=== PATIENT | female | born 1980 | race Caucasian/White ===

== ENCOUNTER 2024-10-14 11:46 | Outpatient (CLI) | payer BC, SELFPAY ==
--- OUTSIDE RECORDS SUMMARY | 2024-10-14 11:56 | XMS_ITS | Encounter Summary ---
Author Organization [facility] Healthcare Address [address] [place] [address] Care Team Providers Care Intermission Coordinator Name Role Phone Josh Morin MD Primary Care Provider [phone] Encounter Details Date Type Department Care Team (Late st Contact Info) Description 08/24/2024 Results Follow-Up [facility] [address] [place] [address] Josh Morin MD [address] [facility] [place] [address] Comprehensive metabolic panel, CBC with auto differential, Lipid panel, Additional followed-up results: 6 Social History Tobacco Use Types Packs/Day Years Used Date Smoking Tobacco: Never Cigarettes Smokeless Tobacco: Never [facility] Utilities Answer Date Recorded In the past 12 months has [facility] [employer], gas, oil, or water [employer] threatened to shut off services in your home? No 05/12/2024 Humiliation, Afraid, Rape, and Kick questionnair e Answer Date Recorded Within the last year, have y ou been afraid of your partner or ex-partner? No 05/12/2024 Within the last year, have y ou been humiliated or emotionally abused in other ways by your partner or ex-partner? No Within the last year, have y ou been kicked, hit, slapped, or otherwise physically hurt by your partner or ex-partner? No 05/12/2024 Within the last year, have y ou been raped or forced to have any kind of sexual activity by your partner or ex-partner? No 05/12/2024 Social Connection and Isolat ion Panel [NHANES] Answer Date Recorded In a typical week, how many times do you talk on the phone with family, friends, or neighbors? More than three times a week 05/12/2024 How often do you get togethe r with friends or relatives? More than three times a week 05/12/2024 How often do you attend [facility] or nondenominational services? More than 4 times per year 05/12/2024 Do you belong to any clubs o r organizations such as hoahaoism groups, unions, fraternal or athletic groups, or school groups? No 05/12/2024 How often do you attend meet ings of the clubs or organizations you belong to? Never 05/12/2024 Are you , , di vorced, , never , or living with a partner? 05/12/2024 AUDIT-C Answer Date Recorded Q1: How often do you have a drink containing alc ohol? Monthly or less 05/12/2024 Q2: How many drinks containi ng alcohol do you have on a typical day when you are drinking? 1 or 2 05/12/2024 Q3: How often do you have si x or more drinks on one occasion? Never 05/12/2024 Overall Financial Resource Strain (CARDIA) Answe r Date Recorded How hard is it for you to pa y for the very basics like food, housing, medical care, and heating? Not hard at all 05/12/2024 PHQ-2 Answer Date Recorded PHQ-2 Total Score (If total score is 3 or more points, staff should administer the PHQ-9) 0 05/12/2024 [facility] - Occupational Stress Questionnaire Answer Date Recorded Do you feel stress - tense, restless, nervous, or anxious, or unable to sleep at night because your mind is troubled all the time - these days? To some extent 05/12/2024 Exercise Vital Sign Answer Date Recorde d On average, how many days pe r week do you engage in moderate to strenuous exercise (like a brisk walk)? 7 days 05/12/2024 On average, how many minutes do you engage in exercise at this level? 30 min 05/12/2024 Hunger Vital Sign Answer Date Recorded Within the past 12 months, y ou worried that your food would run out before you got the money to buy more. Never true 05/12/19 25 Within the past 12 months, t he food you bought just didn't last and you didn't have money to get more. Never true 05/12/2024 PRAPARE - Transportation Answer Date Re corded In the past 12 months, has l ack of transportation kept you from medical appointments or from getting medications? No 04/18 In the past 12 months, has l ack of transportation kept you from meetings, work, or from getting things needed for daily living? No 05/12/2024 PHQ-9 Answer Date Recorded PHQ-9 Total Score 0 05/12/2024 Housing Stability Vital Sign Answer Alexander e Recorded In the last 12 months, was t here a time when you were not able to pay the mortgage or rent on time? No 05/12/2024 In the past 12 months, how m any times have you moved where you were living? 0 05/12/2024 At any time in the past 12 m [facility], were you homeless or living in a long term (including now)? No 05/12/2024 Comments No Sex and Gender Information Value Date Recorded Sex Assigned at Not on file Legal Sex Female 1:39 PM [employer] Gender Identity Not on file Sexual Orientation Not on file documented as of this encounter Plan of Treatment Not on file documented as of this encounter Visit Diagnoses Not on filedocumented in this encounter Care Teams Intermission Coordinator Relationship Specialty Start Date End [place] [address] PCP - General Family Medicine 05/03/22 documented as of this encounter
--- OUTSIDE RECORDS SUMMARY | 2024-10-14 11:56 | XMS_ITS | Referral Summary ---
Author Organization [facility] Address [address] [place] [address] Phone Care Team Providers Care Lacing Cutter Name Role Phone Josh Morin MD Primary Care Provider [phone] Encounters Date Type Department Care Team Description 08/24/2024 Results Follow-Up [facility] [address] [place] [phone] Josh Morin MD Comprehensive metabolic panel, CBC with auto differential, Lipid panel, Additional followed-up results: 6 08/23/2024 8:10 AM CDT Lab [facility] [address] [place] [phone] Annual physical exam; Encounter for hepatitis C screening test for low risk patient; Need for hepatitis B screening test 07/29/2024 Results Follow-Up [facility] [address] [place] [phone] Josh Morin MD Screening Mammogram Bilateral [place] 07/29/2024 12:55 PM CDT - 07/29/2024 11:59 PM CDT Hospital Encounter [facility] [address] [place] [address] Screening mammogram, encounter for Discharge Disposition: Discharge to home or self care from Last 3 Months Allergies Active Allergy Reactions Criticality Noted Date Comments Penicillins Rash Medium 05/03/2022 Medications No known medications Active Problems Problem Noted Date Diagnosed Date Uterine prolapse 05/25/2024 Assessment & Plan (05/25/2024 3:53 PM CDT): Patient diagnosed with uterine prolapse,, has urinary symptoms; patient to follow with gynecology for hysterectomy Seasonal allergic rhinitis due to pollen 025 Assessment & Plan (05/25/2024 3:53 PM CDT): Experience congestion, postnasal drip, mild throat irritation Would recommend OTC anti allergy medications Tinnitus of both ears 05/25/2024 Assessment & Plan (05/25/2024 3:54 PM CDT): Stable, generally well controlled, occasional in nature; continue to encourage avoiding damage to inner ears Class 2 obesity due to exces s calories without serious comorbidity with body mass index (BMI) of 35.0 to 35.9 in adult 05/25/2024 Assessment & Plan (05/25/2024 3:54 PM CDT): Patient is counseled to work on weight loss through dietary and activity changes. Patient is encouraged to decrease caloric intake through portion control, choosing lower calorie foods, and targeting 5-6 servings of vegetables and fruit per day. Patient is encouraged to maintain or target a minimum of 30 minutes moderate intensity exercise 5 days per week. Immunizations Immunization Administration Dates Next Due Influenza, Quadrivalent, Spl it, Preservative Free, Intramuscular 05/03/2022,12/21/2019 Influenza, Trivalent, Preser vative Free, Intramuscular 05/12/2024 Influenza, Unspecified 05/07/2023(Deferr ed: Patient Refused),12/24/2022(Deferred: Patient Refused),11/15/2021(Deferred: Patient Refused) Tdap 05/18/2015 Social History Tobacco Use Types Packs/Day Years Used Date Smoking Tobacco: Never Cigarettes Smokeless Tobacco: Never Tobacco Cessation:Counseling Given: Not Answered [facility] [employer] Answer Date Recorded In the past 12 months has e [employer], gas, oil, or water [employer] threatened to shut off services in your [...] week 05/12/2024 How often do you attend chur or mormon services? More than 4 times per year 05/12/2024 Do you belong to any clubs o r organizations such as religious groups, unions, fraternal or athletic groups, or [...] staff should administer the PHQ-9) 0 05/12/2024 [facility] [place] of Occupat ional Health - Occupational Stress [...] any time in the past 12 m [facility], were you homeless or living in a alf (including now)? No 05/12/2024 Comments No Sex and Gender Information Value Date Recorded Sex Assigned at Not on file Legal Sex Female 1:39 PM [employer] Gender Identity Not on file Sexual Orientation Not on file Last Filed Vital Signs Vital Sign Reading Time Taken Comments Blood Pressure 120/84 05/12/2024 4:03 PM [employer] Pulse 74 05/12/2024 4:03 PM [employer] Temperature 36.7 C (98.1 F) 05/12/2024 4:03 PM [employer] Respiratory Rate 16 05/12/2024 4:03 PM [employer] Oxygen Saturation 99% 05/12/2024 4:03 PM [employer] Inhaled Oxygen Concentration - - Weight 97.5 kg (215 lb) 07/29/2024 1:05 PM CDT Height 165.1 cm (5' 5) 07/29/2024 1:05 PM CDT Body Mass Index 35.78 07/29/2024 1:05 PM CDT Plan of Treatment Not on file Procedures Procedure Name Priority Date/Time Associated Diagnosis Comments EGFR Routine 08/23/2024 8:10 AM CDT Annual physical exam DIFFERENTIAL AUTO Routine 08/23/2024 8:1 0 AM CDT Annual physical exam LIPID PANEL Routine 08/23/2024 8:10 AM CDT Annual physical exam CBC WITH AUTO DIFFERENTIAL Routine 08/23/2024 8:10 AM CDT Annual physical exam COMPREHENSIVE METABOLIC PANEL Routine 08/23/2024 8:10 AM CDT Annual physical exam HEPATITIS B SURFACE ANTIGEN Routine 08/23/2024 8:10 AM CDT Need for hepatitis B screening test HEPATITIS B CORE ANTIBODY, TOTAL Routine 08/23/2024 8:10 AM CDT Need for hepatitis B screening test HEPATITIS B SURFACE ANTIBODY (IMMUNE STATUS) Routine 08/23/2024 8:10 AM CDT Need for hepatitis B screening test HEPATITIS C ANTIBODY Routine 08/23/2024 8:10 AM CDT Encounter for hepatitis C screening test for low risk patient SCREENING MAMMOGRAM BILATERAL [place] Schedule Routine, Read Routine (OP Routine) 07/29/2024 1:11 PM CDT Screening mammogram, encounter for from Last 3 Months Results * eGFR (08/23/2024 8:10 AM CDT) eGFR >90 >=60 mL/min/1. 73 m2 Comment: Interpretive Data Reference Interval Normal >/= 90 mL/min/1.73m2 Mildly decreased* 60 - 89 mL/min/1.73m2 Mildly to moderately decreased 45 - 59 mL/min/1.73m2 Moderately to severely decreased 30 - 44 mL/min/1.73m2 Severely decreased 15 - 29 mL/min/1.73m2 Kidney Failure < 15 mL/min/1.73m2 *Relative to young adult level Estimated glomerular filtration rate is determined by the 2020 CKD-EPI equation recommended by the National Kidney Foundation (A Unifying Approach to GFR Estimation: Recommendations of the NKF-ASK Task Force on Reassessing the Inclusion of Race in Diagnosing Kidney Disease, JASN 2020). The CKD-EPI equation should not be used for patients with unstable renal function and has not been validated in children and those over 70. Current interpretive data was last reviewed 2021. Testing performed by: [address] [address] Blood 08/23/2024 8:10 AM CDT 08/23/2024 1:12 PM CDT Josh Morin MD LAB BLOOD ORDERABLES Evi stallings Result BUFFY MARTINEZ ([place]) 1 [facility] Department [place] [address] * Differential, auto (08/23/2024 8:10 AM CDT) Neutrophil abs 4.96 1.50 - 6.50 K/cumm Comment:Testing performed by : [address] [address] Imm gran abs 0.02 0.00 - 0.10 K/cumm [facility] (RAD[facility]) Comment:Testing performed by : [facility], [address] [place] [address]., [address] Lymphocyte abs 2.09 0.80 - 3.30 K/cumm [facility] (RADHA) Comment:Testing performed by : [address] [address] Monocyte abs 0.46 0.20 - 0.80 K/cumm [facility] (RAD[facility]) Comment:Testing performed by : [facility], [address], [place]., [address] Eosinophil abs 0.18 0.00 - 0.50 K/cumm [facility] (RADHA) Comment:Testing performed by : [facility], [address] [place] [address]., [address] Basophil abs 0.05 0.00 - 0.10 K/cumm [facility] (RADHA) Comment:Testing performed by : [facility], [address] [place] [address]., [address] Neutrophil pct 64.0 % [facility] (RADHA) Comment: Interpretive Data Percent cell count reference ranges are not reported, since discordance with absolute values may lead to misinterpretation of CBC data. Current Interpretive Data was last revised on 2017. Testing performed by: [facility], [address] [place] [address]., [address] Imm gran pct 0.3 % [facility] (RAD[facility]) Comment: Interpretive Data Percent cell count reference ranges are not reported, since discordance with absolute values may lead to misinterpretation of CBC data. Current Interpretive Data was last revised on 2017. Testing performed by: [facility], [address] [place] [address]., [address] Lymphocyte pct 26.9 % [facility] (RAD[facility]) Comment: Interpretive Data Percent cell count reference ranges are not reported, since discordance with absolute values may lead to misinterpretation of CBC data. Current Interpretive Data was last revised on 2017. Testing performed by: [facility], [address] [place] [address]., [address] Monocyte pct 5.9 % [facility] (RAD[facility]) Comment: Interpretive Data Percent cell count reference ranges are not reported, since discordance with absolute values may lead to misinterpretation of CBC data. Current Interpretive Data was last revised on 2017. Testing performed by: [address] [address] Eosinophil pct 2.3 % [facility] (RAD[facility]) Comment: Interpretive Data Percent cell count reference ranges are not reported, since discordance with absolute values may lead to misinterpretation of CBC data. Current Interpretive Data was last revised on 2017. Testing performed by: [address] [address] Basophil pct 0.6 % [facility] (RAD[facility]) Comment: Interpretive Data Percent cell count reference ranges are not reported, since discordance with absolute values may lead to misinterpretation of CBC data. Current Interpretive Data was last revised on 2017. Testing performed by: [address], [address] Blood 08/23/2024 8:10 AM CDT 08/23/2024 12:51 PM CDT us Josh Morin MD LAB BLOOD ORDERABLES Evi stallings Result [facility] ([facility]) 1 [facility] Department [place] [address] * CBC with auto differential (08/23/2024 8:10 AM CDT) WBC 7.76 3.80 - 9.90 K/cumm Comment:Testing performed by : [address], [address] Hgb 14.1 11.9 - 15.5 g/dL [facility] (RADHA) Comment:Testing performed by : [address], [address] Hct 43.1 35.6 - 45.5 % [facility] (RAD[facility]) Comment:Testing performed by : [address], [address] Plt 313 150 - 400 K/cumm [facility] (RADHA) Comment:Testing performed by : [address], [address] MPV 11.8 9.1 - 12.3 fL [facility] (RAD[facility]) Comment:Testing performed by : [address], [address] RBC 4.95 3.90 - 5.20 M/cumm [facility] (RADHA) Comment:Testing performed by : [address], [address] MCV 87.1 81.3 - 96.4 fL [facility] (RAD[facility]) Comment:Testing performed by : [address], [address] MCH 28.5 27.1 - 33.3 pg BUFFY MARTINEZ (RADHA) Comment:Testing performed by : [facility], [address] [place] [address]., [address] MCHC 32.7 32.3 - 35.7 g/dL BUFFY MARTINEZ (RADHA) Comment:Testing performed by : [facility], [address] [place] [address], [address] RDW CV 12.4 11.1 - 14.9 % BUFFY MARTINEZ (RADHA) Comment:Testing performed by : [facility], [address] [place] [address], [address] RDW SD 38.9 35.7 - 48.1 fL BUFFY MARTINEZ (RADHA) Comment:Testing performed by : [facility], [address] [place] [address], [address] NRBC abs 0.00 0.00 - 0.01 K/cumm BUFFY MARTINEZ (RADHA) Comment:Testing performed by : [address], [address] Blood 08/23/2024 8:10 AM CDT 08/23/2024 12:51 PM CDT Josh Morin MD LAB BLOOD ORDERABLES Evi stallings Result BUFFY MICHELLE ([place]) 1 [facility] Department [place] [address] * Hepatitis C antibody Blood (08/23/2024 8:10 AM CDT) Hep C Ab Nonreactive Nonreactive Comment: Interpretive Data Nonreactive: Antibodies to HCV not detected. Does NOT exclude the possibility of recent exposure to HCV. Equivocal: Equivocal for HCV antibodies. Supplemental molecular testing will be automatically performed to determine infection status in accordance with current CDC screening recommendations. Reactive: Positive for HCV antibodies. This may represent current or past HCV infection. Supplemental molecular testing will be automatically performed to determine current infection status in accordance with current CDC screening recommendations. Interpretive data was last revised on 2019. Testing performed by: [facility], [address] [place] [address], [address] Blood 08/23/2024 8:10 AM CDT 08/23/2024 12:51 PM CDT Josh Morin MD LAB MICROBIOLOGY - [employer] L ORDERABLES Final Result [facility] ([place]) 1 [facility] [place] [address] * Hepatitis B core antibody, total Blood (08/23/2024 8:10 AM CDT) Hep B core IgG/IgM Nonreactive Nonreactive Comment:Testing performed by : [facility], [address] [place] [address]., [address] Blood 08/23/2024 8:10 AM CDT 08/23/2024 5:19 PM CDT Josh Morin MD LAB MICROBIOLOGY - [employer] L ORDERABLES Final Result Performing Organization Address City/State/[facility] Co de Phone Number [facility] ([place]) [address] [place] [address] [place] [address] * Hepatitis B surface antibody (immune status) Blood (08/23/2024 8:10 AM CDT) HBsAb (immune status) Nonreactive Comment: Interpretive Data Nonreactive: This result is consistent with a lack of immunity to Hepatitis B Virus when used in the setting of routine screening. Equivocal: The immune status of the individual should be further assessed, if appropriate, after consideration of clinical status, risk factors, and additional diagnostic information. Reactive: This result is consistent with immunity to Hepatitis B Virus when used in the setting of routine screening. Current interpretive data was last revised on 19. Testing performed by: [facility], [address] [place] [address], [place]., [address] Blood 08/23/2024 8:10 AM CDT 08/23/2024 12:51 PM CDT Josh Morin MD LAB MICROBIOLOGY - GENERA L ORDERABLES Final Result [facility] ([place]) 1 [facility] Department [place] [address] * Hepatitis B Surface Antigen Blood (08/23/2024 8:10 AM CDT) HepBsAg Nonreactive Nonreactive Comment:Testing performed by : [facility], [address] [place] [address]., [address] Blood 08/23/2024 8:10 AM CDT 08/23/2024 12:51 PM CDT Josh Morin MD LAB MICROBIOLOGY - GENERA L ORDERABLES Final Result Performing Organization Address [facility] Co de Phone Number [facility] ([place]) 1 [facility] Department [place] [address] * (ABNORMAL) Lipid panel (08/23/2024 8:10 AM CDT) Cholesterol 128 30 - 199 mg/dL Comment: Interpretive Data Ages < or = 19 years Acceptable: <170 mg/dL Borderline high: 170-199 mg/dL High: >or= 200 mg/dL Ages > or = 20 years Desirable: <200 mg/dL Borderline high: 200-239 mg/dL High: >or= 240 mg/dL Literature References: 1. Expert Panel on Integrated Guidelines for Cardiovascular Health and Risk Reduction in Children and Adolescents. Pediatrics 2011;128:S213 2. NCEP Expert Panel. Circulation 2004;110:227 Current Interpretive Data was last revised on 2017. Testing performed by: [facility], [address] [place] [address], [place]., [address] Triglycerides 77 <=149 mg/dL [facility] (RAD[facility]) Comment: Interpretive Data Ages < or = 9 years Acceptable: <75 mg/dL Borderline high: 75-99 mg/dL High: >or= 100 mg/dL Ages 10 to 20 years Acceptable: <90 mg/dL Borderline high: 90-129 mg/dL High: >or= 130 mg/dL Ages > or = 20 years Desirable: <150 mg/dL Borderline high: 150-199 mg/dL High: 200-499 mg/dL Very high: >or= 499 mg/dL Literature References: 1. Expert Panel on Integrated Guidelines for Cardiovascular Health and Risk Reduction in Children and Adolescents. Pediatrics 2011;128:S213 2. NCEP Expert Panel. Circulation 2004;110:227 Current Interpretive Data was last revised on 2017. Testing performed by: [facility], [address] [place] [address]., [address] HDL 35(L) >=40 mg/dL BUFFY Zuniga (RADHA) Comment: Interpretive Data Ages < or = 19 years Acceptable: >45 mg/dL Borderline low: 40-45 mg/dL Low: <40 mg/dL Ages > or = 20 years Desirable: >or= 60 mg/dL Low: <40 mg/dL Literature References: 1. Expert Panel on Integrated Guidelines for Cardiovascular Health and Risk Reduction in Children and Adolescents. Pediatrics 2011;128:S213 2. NCEP Expert Panel. Circulation 2004;110:227 Current Interpretive Data was last revised on 2017. Testing performed by: [facility], [address] [place] [address]., [address] LDL, calculated 78 <=129 mg/dL BUFFY MARTINEZ (RADHA) Comment: Interpretive Data Ages < or = 19 years Acceptable: <110 mg/dL Borderline high: 110-129 mg/dL High: >or= 130 mg/dL Ages > or = 20 years Optimal: <100 mg/dL Near optimal: 100-129 mg/dL Borderline high: 130-159 mg/dL High: >160 mg/dL Calculated using the Jerardo LDL-C estimating equation. This equation was implemented on 2023. Prior to this date LDL-C was estimated using the Friedewald equation. Literature References: 1. Expert Panel on Integrated Guidelines for Cardiovascular Health and Risk Reduction in Children and Adolescents. Pediatrics 2011;128:S213 2. NCEP Expert Panel. Circulation 2004;110:227 3. Jerardo Pollard al. ELTON Cardiol. 2020 July 15;5(5):540-548. doi: 10.1001/jamacardio.2020.0013 Current Interpretive Data was last revised on 2023. Testing performed by: [facility], [address] [place] [address]., [address] Non-HDL Cholesterol 93 mg/dL [facility] (RAD[facility]) Comment: Interpretive Data Ages < or = 19 years Acceptable: <120 mg/dL Borderline high: 120-144 mg/dL High: >145 mg/dL Ages > or = 20 years When triglycerides are >200 mg/dL, Non-HDL cholesterol is a secondary target of therapy with treatment goals that are 30 mg/dL greater than the LDL cholesterol target. Literature References: 1. Expert Panel on Integrated Guidelines for Cardiovascular Health and Risk Reduction in Children and Adolescents. Pediatrics 2011;128:S213 2. NCEP Expert Panel. Circulation 2004;110:227 Current Interpretive Data was last revised on 2017. Testing performed by: [address] [address] Chol/HDL ratio 4 CERNE R MICHELLE (RADHA) Comment:Testing performed by : [address] [address] Blood 08/23/2024 8:10 AM CDT 08/23/2024 12:51 PM CDT us Josh Morin MD LAB BLOOD ORDERABLES Evi l Result BUFFY MARTINEZ (RADHA) 1 [facility] Department [place] [address] * Comprehensive metabolic panel (08/23/2024 8:10 AM CDT) Sodium 138 135 - 145 mmol/L Comment:Testing performed by : [address] [address] Potassium, pl 4.1 3.3 - 4.9 mmol/L BUFFY MARTINEZ (RADHA) Comment:Testing performed by : [address] [address] Chloride 106 97 - 110 mmol/L BUFFY MARTINEZ (RADHA) Comment:Testing performed by : [address] [address] CO2 23 22 - 32 mmol/L BUFFY MARTINEZ (RADHA) Comment:Testing performed by : [address] [address] Anion gap 9 2 - 15 mmol/L [facility] (RADHA) Comment:Testing performed by : [address] [address] BUN 7 6 - 25 mg/dL [facility] (RADHA) Comment:Testing performed by : [address] [address] Creatinine 0.77 0.60 - 1.10 mg/dL [facility] (RADHA) Comment:Testing performed by : [address], [address] Glucose 104 70 - 199 mg/dL [facility] (RADHA) Comment: Interpretive Data Fasting glucose >/= 126 mg/dl is diagnostic for diabetes. Fasting is defined as no caloric intake for at least 8 hours. Fasting glucose between 100 mg/dl to 125 mg/dl is diagnostic of prediabetes. In a patient with classic symptoms of hyperglycemia or hyperglycemic crisis, a random glucose >/= 200 mg/dl is diagnostic for diabetes. In the absence of unequivocal hyperglycemia, results should be confirmed by repeat testing. The classification and Diagnosis of Diabetes Diabetes Care 2021; 46: S19-S40. Current interpretive data was last revised 2022. Testing performed by: [address] [address] Calcium 9.0 8.5 - 10.3 mg/dL [facility] (RADHA) Comment:Testing performed by : [address] [address] Bilirubin, total 0.5 0.1 - 1.2 mg/dL [facility] (RADHA) Comment:Testing performed by : [address] [address] Protein, pl 7.5 6.5 - 8.5 g/dL [facility] (RADHA) Comment:Testing performed by : [address], [address] Albumin 4.1 3.5 - 5.0 g/dL [facility] (RADHA) Comment:Testing performed by : [address], [address] Alk phos 75 40 - 130 Units/L [facility] (RADHA) Comment:Testing performed by : [address], [address] ALT 10 7 - 45 Units/L [facility] (RADHA) Comment:Testing performed by : [facility], [address] [place] [address], [place]., [address] AST 18 10 - 45 Units/L [facility] (RADHA) Comment:Testing performed by : [facility], [address] [place] [address], [facility], [address] Blood 08/23/2024 8:10 AM CDT 08/23/2024 12:51 PM CDT Josh Morin MD LAB BLOOD ORDERABLES Vei l Result [facility] ([place]) 1 [facility] Department [place] [address] * Screening Mammogram Bilateral [place] (07/29/2024 1:11 PM CDT) Anatomical Region Laterality Modality Breast Bilateral Mammography Impressions 07/29/2024 2:32 PM CDT Bilateral No evidence of malignancy in either breast. OVERALL BI-RADS FINAL ASSESSMENT: 1 - Negative RECOMMENDATION: Recommend bilateral annual screening mammography. Narrative 07/29/2024 2:32 PM CDT EXAMINATION: Screening Mammogram Bilateral [place]: 07/29/2024 COMPARISON: Relevant prior studies available at the time of interpretation were reviewed. TECHNIQUE: Mammography was performed with 2D and digital breast tomosynthesis (DBT) images. CAD was utilized. BREAST PARENCHYMAL COMPOSITION: There are scattered areas of fibroglandular density. FINDINGS: Bilateral There is no suspicious mass, calcification, or architectural distortion in either breast. us Self Screening Mammogram IMG MAMMO PROCEDURES Fi nal Result from Last 3 Months Insurance [facility] Care Teams Lacing Cutter Relationship Specialty Start Date End Date Josh Morin MD [address] [place] [address] PCP - General Family Medicine 05/03/22
--- OUTSIDE RECORDS SUMMARY | 2024-10-14 11:56 | XMS_ITS | Clinical Summary ---
Author Organization [facility] Address [address] [place] [address] Care Team Providers Care Surgery Nurse Name Role Phone Unknown, Provider Primary Care Provider Unavaila ble Source Comments [facility],non-owned Affiliates and Associated Physician Practices is amultiple site organization consisting of ambulatory clinics and hospital sitesin [place], [place], [place]. This disclosure is being madepursuant to the Care Everywhere program and may not contain all information available regarding this patient. Last updated 17.[facility] Allergies Active Allergy Reactions Criticality Noted Date Comments Amoxicillin 05/20/2016 Medications * Be aware that medications may not be up to date on this document. Alwaysverify current medications with the patient. 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 Gender Identity Not on file Sexual Orientation Not on file Last Filed Vital Signs Vital Sign Reading Time Taken Comments Blood Pressure 110/80 05/20/2016 8:07 AM UPTWISTER TENDER Pulse 104 05/20/2016 8:07 AM UPTWISTER TENDER Temperature 37.7 C (99.9 F) 05/20/2016 8:07 AM UPTWISTER TENDER Respiratory Rate 16 05/20/2016 8:07 AM UPTWISTER TENDER Oxygen Saturation 99% 05/20/2016 8:07 AM UPTWISTER TENDER Inhaled Oxygen Concentration - - Weight 94.3 kg (208 lb) 05/20/2016 8:07 AM UPTWISTER TENDER Height 165.1 cm (5' 5) 05/20/2016 8:07 AM UPTWISTER TENDER Body Mass Index 34.61 05/20/2016 8:07 AM UPTWISTER TENDER Plan of Treatment Health Maintenance Due Date Last Done Comments LIPID TESTING 1982 MAMMOGRAM 1982 HIV SCREENING 1997 HEPATITIS C SCREENING 09/25/2000 DTAP/TDAP/TD VACCINES (1 - Tdap) 2001 HEPATITIS B VACCINE (1 of 3 - 19+ 3-dose series) 2001 HPV VACCINE (1 - 3-dose SCDM series) 2009 COVID-19 VACCINE (1 - 2023-2 5 season) 2023 DEPRESSION SCREENING 03/17/2024 INFLUENZA VACCINE (#1) 2024 ZOSTER VACCINE (1 of 2) 2032 HIB VACCINE Aged Out No longer eligi ble based on patient's age to complete this topic MENINGOCOCCAL (Group B) VACC INE SHARED DECISION-MAKING Aged Out No longer eligibl e based on patient's age to complete this topic MENINGOCOCCAL GROUPS A/C/Y/W VACCINE Aged Out No longer eligible b ased on patient's age to complete this topic PNEUMOCOCCAL VACCINE Aged Out No long er eligible based on patient's age to complete this topic Insurance ANTHEM Care Teams Surgery Nurse Relationship Specialty Start Date End Date Unknown, Provider PCP - General 05/20/16
--- OUTSIDE RECORDS SUMMARY | 2024-10-14 11:56 | XMS_ITS | Clinical Summary ---
Author Organization [facility] Address [address] [place] [address] Phone Care Team Providers Care Head Of Housekeeping Name Role Phone Josh Morin MD Primary Care Provider [phone] Allergies Active Allergy Reactions Criticality Noted Date [...] moderate intensity exercise 5 days per week. Encounters Date Type Department Care Team Description 08/24/2024 Results Follow-Up [facility] [address] [place] [address] Josh Morin MD Comprehensive metabolic panel, CBC with auto differential, Lipid panel, Additional followed-up results: 6 08/23/2024 8:10 AM CDT Lab [facility] [address] [place] [id number] Annual physical exam; Encounter for hepatitis C screening test for low risk patient; Need for hepatitis B screening test 07/29/2024 12:55 PM CDT - 07/29/2024 11:59 PM CDT Hospital Encounter [facility] [address] [place] [address] Screening mammogram, encounter for Discharge Disposition: Discharge to home or self care 07/29/2024 Results Follow-Up [facility] [address] [place] [address] Josh Morin MD Screening Mammogram Bilateral W Gal from Last 3 Months Immunizations Immunization Administration Dates Next Due Influenza, Quadrivalent, Spl it, Preservative Free, Intramuscular 05/03/2022,12/21/2019 Influenza, Trivalent, Preser vative Free, Intramuscular 05/12/2024 Influenza, Unspecified 05/07/2023(Deferr ed: Patient Refused),12/24/2022(Deferred: Patient Refused),11/15/2021(Deferred: Patient Refused) Tdap 05/18/2015 Surgical History Surgery Date Site/Laterality Comments APPENDECTOMY LASIK Medical History Medical History Date Comments Anxiety Post depression Uterine prolapse 05/01/2024 Family History Medical History Relation Name Comments Asthma Father Arian Diabetes type II Father Arian Hypertension Father Arian Thyroid cancer Father Arian Heart attack Maternal Grandfather Miller Hypothyroidism Mother Heart attack Mother's Brother Cristo Colon cancer Paternal Grandfather Kidney failure Paternal Grandfather Relation Name Status Comments Father Arian Maternal Grandfather Miller Mother Mother's Brother Cristo Paternal Grandfather Social History Tobacco Use Types Packs/Day Years Used Date Smoking Tobacco: Never Cigarettes Smokeless Tobacco: Never Tobacco Cessation:Counseling Given: Not Answered [facility] Utilities Answer Date Recorded In the past 12 months has e [employer], gas, oil, or water company threatened to shut off services in your [...] How often do you attend chur or latter-day services? More than 4 times per year 05/12/2024 Do you belong to any clubs o r organizations such as holiness groups, unions, fraternal or athletic groups, or [...] staff should administer the PHQ-9) 0 05/12/2024 [facility] Questionnaire Answer Date Recorded [...] any time in the past 12 [facility], were you homeless or living in a [facility] (including now)? No 05/12/2024 Comments No Sex and Gender Information Value Date Recorded Sex Assigned at Not on file Legal Sex Female 1:39 PM HAND TIRE TRIMMER Gender Identity Not on file Sexual Orientation Not on file Obstetrics History Para Term AB IAB SAB Ectopic Multiple Livin g Live Births 2 2 2 Date Outcome GA Total Labor Labor/2nd/3rd Weight Sex Type Anes PTL Niya A1 A5 Name Clin Term Term Last Filed Vital Signs Vital Sign Reading Time Taken Comments Blood Pressure 120/84 05/12/2024 4:03 PM HAND TIRE TRIMMER Pulse 74 05/12/2024 4:03 PM HAND TIRE TRIMMER Temperature 36.7 C (98.1 F) 05/12/2024 4:03 PM HAND TIRE TRIMMER Respiratory Rate 16 05/12/2024 4:03 PM HAND TIRE TRIMMER Oxygen Saturation 99% 05/12/2024 4:03 PM HAND TIRE TRIMMER Inhaled Oxygen Concentration - - Weight 97.5 kg (215 lb) 07/29/2024 1:05 PM CDT Height 165.1 cm (5' 5) 07/29/2024 1:05 PM CDT Body Mass Index 35.78 07/29/2024 1:05 PM CDT Plan of Treatment Health Maintenance Due Date Last Done Comments HPV Vaccines (1 - 3-dose SCDM series) 2009 Covid-19 Vaccine ( season) 2023 03/01/2021, 07/07/2020, 06/09/2020 Influenza Vaccine (#1) 2024 , 05/03/2022, 12/21/2019 Cervical Cancer Screening 04/17/2025 04/17/2024 Depression Screening 05/12/2025 05/12/2024, 05/07/2023, 05/03/2022 Regular Well Visit/Exam 18-64 05/12/2025 05/12/2024, 05/07/2023 DTaP/Tdap/Td Vaccine (2 - Td or Tdap) 05/17/2025 05/18/2015 Breast Cancer Screening-Mammogram 07/29/2025 07/29/2024, 06/20/2023 Hepatitis B Screening Completed 08/23/2024 Hepatitis C Screening Completed 08/23/2024 Pneumococcal vaccine <65 Aged Out No longer eligible based on patient's age to complete this topic Varicella Vaccines Discontinued Procedures Procedure Name Priority Date/Time Associated Diagnosis [...] low risk patient SCREENING MAMMOGRAM BILATERAL W GAL Schedule Routine, Read Routine (OP Routine) 07/29/2024 [...] was last reviewed 2021. Testing performed by: [address], [address] Blood 08/23/2024 8:10 AM CDT 08/23/2024 1:12 PM CDT us Josh Morin MD LAB BLOOD ORDERABLES Evi stallings Result [facility] ([place]) [address] [facility] [place] [address] * Differential, auto (08/23/2024 8:10 AM CDT) Neutrophil abs 4.96 1.50 - 6.50 K/cumm Comment:Testing performed by : [facility], [address] [place] [address], [address] Imm gran abs 0.02 0.00 - 0.10 K/cumm [facility] ([place]) Comment:Testing performed by : [address], [address] Lymphocyte abs 2.09 0.80 - 3.30 K/cumm [facility] ([place]) Comment:Testing performed by : [address] [address] Monocyte abs 0.46 0.20 - 0.80 K/cumm [facility] ([place]) Comment:Testing performed by : [address], [address] Eosinophil abs 0.18 0.00 - 0.50 K/cumm [facility] ([place]) Comment:Testing performed by : [address], [address] Basophil abs 0.05 0.00 - 0.10 K/cumm [facility] ([place]) Comment:Testing performed by : [address] [place]., [address] Neutrophil pct 64.0 % [facility] ([place]) Comment: Interpretive Data Percent cell count reference ranges are not reported, since discordance with absolute values may lead to misinterpretation of CBC data. Current Interpretive Data was last revised on 2017. Testing performed by: [facility], [address] [place] [address]., [address] Imm gran pct 0.3 % [facility] ([place]) Comment: Interpretive Data Percent cell count reference ranges are not reported, since discordance with absolute values may lead to misinterpretation of CBC data. Current Interpretive Data was last revised on 2017. Testing performed by: [address] [address] Lymphocyte pct 26.9 % [facility] ([place]) Comment: Interpretive Data Percent cell count reference ranges are not reported, since discordance with absolute values may lead to misinterpretation of CBC data. Current Interpretive Data was last revised on 2017. Testing performed by: [address] [address] Monocyte pct 5.9 % [facility] ([place]) Comment: Interpretive Data Percent cell count reference ranges are not reported, since discordance with absolute values may lead to misinterpretation of CBC data. Current Interpretive Data was last revised on 2017. Testing performed by: [address] [address] Eosinophil pct 2.3 % [facility] ([place]) Comment: Interpretive Data Percent cell count reference ranges are not reported, since discordance with absolute values may lead to misinterpretation of CBC data. Current Interpretive Data was last revised on 2017. Testing performed by: [address] [address] Basophil pct 0.6 % [facility] ([place]) Comment: Interpretive Data Percent cell count reference ranges are not reported, since discordance with absolute values may lead to misinterpretation of CBC data. Current Interpretive Data was last revised on 2017. Testing performed by: [address] [address] Blood 08/23/2024 8:10 AM CDT 08/23/2024 12:51 PM CDT us Josh Morin MD LAB BLOOD ORDERABLES Evi chandrakant Result [facility] ([place]) [facility] [place] [address] * CBC with auto differential (08/23/2024 8:10 AM CDT) WBC 7.76 3.80 - 9.90 K/cumm Comment:Testing performed by : [facility], [address] [place] [address], [address] Hgb 14.1 11.9 - 15.5 g/dL [facility] ([place]) Comment:Testing performed by : [address], [address] Hct 43.1 35.6 - 45.5 % [facility] ([place]) Comment:Testing performed by : [address], [address] Plt 313 150 - 400 K/cumm [facility] ([place]) Comment:Testing performed by : [address], [address] MPV 11.8 9.1 - 12.3 fL [facility] ([place]) Comment:Testing performed by : [address], [address] RBC 4.95 3.90 - 5.20 M/cumm [facility] ([place]) Comment:Testing performed by : [address], [address] MCV 87.1 81.3 - 96.4 fL [facility] ([place]) Comment:Testing performed by : [address], [address] MCH 28.5 27.1 - 33.3 pg [facility] ([place]) Comment:Testing performed by : [address], [address] MCHC 32.7 32.3 - 35.7 g/dL [facility] ([place]) Comment:Testing performed by : [address] [address] RDW CV 12.4 11.1 - 14.9 % [facility] ([place]) Comment:Testing performed by : [facility], [address] [place] [address]., [address] RDW SD 38.9 35.7 - 48.1 fL [facility] ([place]) Comment:Testing performed by : [facility], [address] [place] [address]., [address] NRBC abs 0.00 0.00 - 0.01 K/cumm [facility] ([place]) Comment:Testing performed by : [facility], [address] [place] [address]., [id number] Blood 08/23/2024 8:10 AM CDT 08/23/2024 12:51 PM CDT Josh Morin MD LAB BLOOD ORDERABLES Evi l Result Performing Organization Address [facility] Co de Phone Number [facility] ([place]) [address] [facility] [place] [address] * Hepatitis C antibody Blood (08/23/2024 8:10 [...] last revised on 2019. Testing performed by: [facility], [address] [place] [address]., [id number] Blood 08/23/2024 8:10 AM CDT 08/23/2024 12:51 PM CDT Josh Morin MD LAB MICROBIOLOGY - GENERA L ORDERABLES Final Result Performing Organization Address [facility] de Phone Number [facility] ([place]) [address] [place] [address] * Hepatitis B core antibody, total Blood (08/23/2024 8:10 AM CDT) Pathologist [facility] Hep B core IgG/IgM Nonreactive Nonreactive Comment:Testing performed by : [facility], [address] [place]., [address] Blood 08/23/2024 8:10 AM CDT 08/23/2024 5:19 PM CDT Josh Morin MD LAB MICROBIOLOGY - GENERA L ORDERABLES Final Result [facility] ([place]) [address] [place] [address] * Hepatitis B surface antibody (immune status) Blood (08/23/2024 8:10 AM CDT) [facility] HBsAb (immune status) Nonreactive Comment: Interpretive Data [...] last revised on 19. Testing performed by: [facility], [address] [place] [address]., [id number] Blood 08/23/2024 8:10 AM CDT 08/23/2024 12:51 PM CDT Josh Morin MD LAB MICROBIOLOGY - GENERA L ORDERABLES Final Result [facility] ([place]) 1 [facility] [place] [address] * Hepatitis B Surface Antigen Blood (08/23/2024 8:10 AM CDT) Pathologist [facility] HepBsAg Nonreactive Nonreactive Comment:Testing performed by : [address] [address] Blood 08/23/2024 8:10 AM CDT 08/23/2024 12:51 PM CDT us Josh Morin MD LAB MICROBIOLOGY - GENERA L ORDERABLES Final Result [facility] ([place]) [facility] [place] [address] * (ABNORMAL) Lipid panel (08/23/2024 8:10 AM [...] last revised on 2017. Testing performed by: [facility], [address] [place] [address]., [address] Triglycerides 77 <=149 mg/dL [facility] ([place]) Comment: Interpretive Data Ages < or [...] last revised on 2017. Testing performed by: [address] [place] [address] HDL 35(L) >=40 mg/dL [facility] ([place]) [...] last revised on 2017. Testing performed by: [facility], [address] [place] [address]., [address] LDL, calculated 78 <=129 mg/dL [facility] [...] NCEP Expert Panel. Circulation 2004;110:227 3. Jerardo Herman et al. ELTON Cardiol. 2019July 15;5(5):540-548. doi: 10.1001/jamacardio.2020.0013 Current Interpretive Data was last revised on 2023. Testing performed by: [facility], [id number] [place] [address]., [address] Non-HDL Cholesterol 93 mg/dL [facility] ([place]) Comment: Interpretive Data [...] last revised on 2017. Testing performed by: [facility], [address] [place] [address]., [address] Chol/HDL ratio 4 [facility] ([place]) Comment:Testing performed by : [address] [address] Blood 08/23/2024 8:10 AM CDT 08/23/2024 12:51 PM CDT Josh Morin MD LAB BLOOD ORDERABLES Evi stallings Result [facility] ([place]) [facility] [place] [address] * Comprehensive metabolic panel (08/23/2024 8:10 AM CDT) Sodium 138 135 - 145 mmol/L Comment:Testing performed by : [address] [address] Potassium, pl 4.1 3.3 - 4.9 mmol/L [facility] ([place]) Comment:Testing performed by : [address] [address] Chloride 106 97 - 110 mmol/L [facility] ([place]) Comment:Testing performed by : [address] [address] CO2 23 22 - 32 mmol/L [facility] ([place]) Comment:Testing performed by : [address] [address] Anion gap 9 2 - 15 mmol/L [facility] ([place]) Comment:Testing performed by : [address] [address] BUN 7 6 - 25 mg/dL [facility] ([place]) Comment:Testing performed by : [address], [address] Creatinine 0.77 0.60 - 1.10 mg/dL [facility] ([place]) Comment:Testing performed by : [address] [address] Glucose 104 70 - 199 mg/dL [facility] [...] was last revised 2022. Testing performed by: [address], [address] Calcium 9.0 8.5 - 10.3 mg/dL [facility] ([place]) Comment:Testing performed by : [address], [address] Bilirubin, total 0.5 0.1 - 1.2 mg/dL [facility] ([place]) Comment:Testing performed by : [address] [address] Protein, pl 7.5 6.5 - 8.5 g/dL [facility] ([place]) Comment:Testing performed by : [address], [address] Albumin 4.1 3.5 - 5.0 g/dL [facility] ([place]) Comment:Testing performed by : [address] [address] Alk phos 75 40 - 130 Units/L [facility] ([place]) Comment:Testing performed by : [address], [address] ALT 10 7 - 45 Units/L [facility] ([place]) Comment:Testing performed by : [address], [address] AST 18 10 - 45 Units/L [facility] ([place]) Comment:Testing performed by : [address], [address] Blood 08/23/2024 8:10 AM CDT 08/23/2024 12:51 PM CDT Josh Morin MD LAB BLOOD ORDERABLES Evi chandrakant Result [facility] ([place]) [facility] [place] [address] * Screening Mammogram Bilateral W Gal (07/29/2024 1:11 PM CDT) Anatomical Region Laterality Modality Breast Bilateral Mammography Impressions 07/29/2024 2:32 PM CDT Bilateral No evidence of malignancy in either breast. OVERALL BI-RADS FINAL ASSESSMENT: 1 - Negative RECOMMENDATION: Recommend bilateral annual screening mammography. Narrative 07/29/2024 2:32 PM CDT EXAMINATION: Screening Mammogram Bilateral W Gal: 07/29/2024 COMPARISON: Relevant prior studies available at the time of interpretation were reviewed. TECHNIQUE: Mammography was performed with 2D and digital breast tomosynthesis (DBT) images. CAD was utilized. BREAST PARENCHYMAL COMPOSITION: There are scattered areas of fibroglandular density. FINDINGS: Bilateral There is no suspicious mass, calcification, or architectural distortion in either breast. Self Screening Mammogram IMG MAMMO PROCEDURES Fi nal Result from Last 3 Months Insurance [facility] Care Teams Head Of Housekeeping Relationship Specialty Start Date End Date Josh Morin MD [address] [place] [address] PCP - General Family Medicine 05/03/22
--- NOTE | 2024-10-14 12:35 | ECG_ITS ---
Test Date: 2024-10-14 12:55:33 Measurements Intervals [place] Rate: 88 P: 40 MS: 157 QRS: -1 QRSD: 82 T: 30 QT: 408 QTc: 494 Interpretive Statements SINUS RHYTHM WITH SINUS ARRHYTHMIA LOW QRS VOLTAGE IN PRECORDIAL LEADS BASELINE ARTIFACT- I, II, III, AVR, AVL, AVF, V1-V6 BORDERLINE ECG No previous ECG available for comparison Electronically Signed On 10-15-2024 06:28:36 CDT by Pedro Mars D.O.
[2024-10-14 13:12] LABS: Hematocrit 40.2 % (37.0-47.0); Hemoglobin 13.4 g/dL (12.0-15.0); Immature Granulocyte Percent A 0.3 % (0-0.5); Lymphocytes Absolute Auto 2.63 K/mm3 (0.9-3.2); Mean Corpuscular HGB Conc 33.3 g/dl (32-36); Mean Corpuscular Hemoglobin 28.8 pg (26-34); Mean Corpuscular Volume 86.3 fl (80-100); Nucleated Red Blood Cells Absolute Auto 0.000 K/mm3 (0.0-0.012); Nucleated Red Blood Cells Perc 0.0 % (0.0-0.2); Platelet Count Result 315 k/mm3 (150-375); Red Blood Count 4.66 M/mm3 (4.2-5.4); White Blood Count 8.0 K/mm3 (4.5-10.0)
[2024-10-14 13:27] LABS: INR 1.0; Partial Thromboplastin Time 27.9 Seconds (22.3-36.8); Prothrombin Time 13.6 Seconds (11.1-14.7)
[2024-10-14 13:37] LABS: Alanine Aminotransferase 14 U/L (6-35); Albumin Level 4.2 g/dL (3.5-5.1); Alkaline Phosphatase 70 U/L (38-126); Anion Gap 8 mmol/L (4-12); Aspartate Amino Transferase 22 U/L (14-36); Bilirubin,Total 0.4 mg/dL (0.2-1.3); Blood Urea Nitrogen 11 mg/dL (7-17); Calcium 9.0 mg/dL (8.4-10.2); Carbon Dioxide 23 mmol/L (22-30); Chloride 106 mmol/L (98-107); Estimated Glomerular Filt Rate > 60; Glucose 94 mg/dL (65-110); Potassium 3.9 mmol/L (3.4-5.0); Sodium 137 mmol/L (137-145); Total Protein 7.6 g/dL (6.3-8.2)
== END 2024-10-14 11:47 | disposition home or self-care (01) ==
LOC: ANHSURGERY 11:54
PROVIDERS: PCP Hospitalist; Visit Provider Urology
DX: N99.3 Prolapse of vaginal vault after hysterectomy (principal)
CPT/HCPCS: 36415; 80053; 85025; 85610; 85730; 86850; 86900; 86901; 93005

== ENCOUNTER 2024-10-25 02:24 | Day surgery (SDC) | payer BC, SELFPAY ==
--- NOTE | 2024-10-14 11:56 | PC.NURSE ---
Report to the Outpatient Waiting Room, entrance under the green pavilion located off [facility], at time __6am on date _10/25/24 . Planned Procedure Time: _7:30 am .? Time changes happen often and if your time is changed the preop area will call you the afternoon before. - You and your visitor will be asked to self-screen and do not enter if you have any COVID symptoms. Please call surgeon if you need to reschedule. - A mask is optional within the hospital at this time. Patients may have clear liquids (water, carbonated beverages, clear teas, apple juice) until 3 hours prior to surgery ( 4:30 am) with a maximum of 20 ounces. - No food from midnight until time of surgery and no smoking, or chewing tobacco (or any form of nicotine). No chewing gum, candy or mints. Take only the following medications with a SIP of water on the morning of surgery: NONE DO NOT STOP ANY OF YOUR OTHER PRESCRIPTION MEDICATIONS PRIOR TO SURGERY EXCEPT THE FOLLOWING Hold all vitamins and supplements for 3 days per anesthesiologist.LAST DOSE 10/21/24 Medications to discontinue per physician NONE Please no make-up, nail telugu, hairspray, perfume, deodorant, or body powder the day of surgery.? No jewelry (including any body piercings) or valuables the day of surgery, leave them at home.? Please take a shower or bath the night before, or the morning of, surgery with an antibacterial soap.? Wear comfortable, loose fitting clothing.? Children are encouraged to wear pajamas. - Jewelry must be removed prior to entering the operating room.? Rings and piercings that are not removed may be cut off. - The hospital will not accept responsibility for valuables.? - Please leave all valuables, including medications, at home the day of surgery. If you are going home after surgery, a licensed driver education road instructor must drive you home.? - NO public transportation without another adult if you receive anesthesia. - We recommend that an adult stay with you for 24 hours following discharge. - We also recommend that you do not drive, make important decision, drink alcoholic beverages, or take any drugs that were not prescribed by your health care provider for at least 24 hours after your discharge time. Follow any additional instructions given to you from your surgeon. VERBAL AND WRITTEN instructions given to ___PATIENT and asked if any additional questions and then verbalized understanding. Patient advised to call surgeon office or pre surgery nurse liaison [phone] if any additional questions.
[2024-10-14 12:01] VITALS: BMI 36.0
[2024-10-14 12:37] VITALS: BP 132/86; PULSE 71; RESP 18; TEMP 37; O2SAT 100
--- NOTE | 2024-10-22 10:25 | P.HP_ITS ---
H&P: HPI History of Present Illness Date/Time: 10/22/24 10:25 Chief Complaint: POP/SUYAPA Narrative: Krzysztof Lemons is a 43-year-old female who presents for evaluation of pelvic organ prolapse. She has a history of uterine prolapse, which she has noticed for several years. She reports difficulty with urination, including hesitancy and the need to maneuver her body by leaning forward or holding her stomach to facil itate bladder emptying. She also experiences urinary leakage with activities such as sneezing, jumping, and coughing. Additionally, bowel movements exacerbate her symptoms by pushing everything forward. Sexual activity is described as not problematic but occasionally uncomfortable. She has a history of two pregnancies, with the second child having a larger head, which she believes contributed to her condition. She has been referred by Dr. Webber, a furniture fabricator, who recommended a hysterectomy. Other treatment options, such as physical therapy and pessary usage, were discussed but deemed unsuitable for her case By her furniture fabricator I personally reviewed previous medical records and they are ?summarized above PMFSH Family History Family History Father Family history of thyroid disease Mother Family history of thyroid disease Grandparent Family history of pancreatic cancer Social History Social History Smoking status: Never smoker Alcohol intake: never Living arrangements: with family Spiritual care concerns: No Meds Home Medications and Allergies Home Medications ?Medication ?Instructions ?Recorded ?Confirmed ?Type multivitamin with minerals-folic 2 tablet PO DAILY 10/14/24 10/14/24 History acid 200 mcg chewable tablet (Adult Multivitamin Gummies) Allergies Allergy/AdvReac Type Severity Reaction Status Date / Time amoxicillin Allergy Unknown Rash Verified 10/14/24 12:02 Exam Narrative: Note:? - General appearance: ?No acute distress. ? - Building nutrition: ?Well-developed, w ell-nourished. ? - Integumentary: ?Overall skin examinati on reveals no significant rashes. ? - Head and Neck: ?Head normocephalic atr aumatic, trachea midline, goiter none, eye extraocular movements intact. ? - Chest and Lung: ?Quiet and even respir atory effort without the use of accessory muscles of respiration, no cough or grunting. ? - Breast: ?Breast exam not indicated. ? - Cardiovascular: ?Lower extremity edema : none, lower extremity varicosities: none. ? - Abdomen: ?Inspection abdomen flat, inc isions none, palpation soft, non-rigid, no guarding. ? Female genitourinary: - External genitalia: Vulvar hair distri bution normal. ? - Introitus: No discharge. ? - Urethral characteristics: Orthotopic, non-tender, no diverticulum, stress incontinence present, mobility hypermobility. ? - Speculum and bimanual: ? - Cystocele: none. ? - Vaginal apex: Cervix at introitus - Rectocele: none. ? - Vaginal mucosa: healthy. ? - Rectal: Normal anus and perineum, INGA not indicated. ? - Neurologic: ?General alert and oriente d x3. Active movement of all 4 extremities. ? - Pelvic floor muscle tone: ?normal. ? - Pelvic floor muscle tenderness: ?absen t. ? - Lymphatic: ?No visible lymphadenopathy . Assessment and Plan Assessment and plan (1) Uterine prolapse: Code(s): N81.4 - Uterovaginal prolapse, unspecified Status: Acute (2) SUYAPA (stress urinary incontinence, female): Code(s): N39.3 - Stress incontinence (female) (male) Status: Acute Plan - Uterine prolapse, cervix at the vaginal opening or introitus. ? - Stress urinary incontinence, associated with coughing, sneezing, and jumping. PLAN: - We discussed the treatment options for pelvic organ prolapse, including observation, pelvic floor muscle exercises, physical therapy, pessary usage, and surgery, as well as each approach's specific risks and benefits. She opts for a sacral colpopexy. We specifically discussed the utilization of robotic sacral colpopexy. ? - She understands the risks of bleeding, infection, recurrence or prolapse, mesh exposure, damage to the bowel or urinary tract, open conversion, de omid urinary urgency, urinary retention, post-operative stress urinary incontinence, dyspareunia, back pain, diskitis, and risks of anesthesia. In addition, she was provided written information on the etiology and treatment of pelvic organ prola pse. After an extensive discussion, she agrees to proceed with surgery. ? - We discussed the treatment options for stress urinary incontinence, including pelvic floor muscle rehabilitation, transurethral bulking agents, and mid- urethral sling procedures. She is most interested in the latter. ? - We discussed the alternatives, benefits, and risks. We discussed specifically the risks of bleeding, infection, failure to correct incontinence, damage to the urinary tract, vaginal mesh extrusion, urinary tract mesh erosion, obstructive voiding requiring a secondary procedure, de omid or worsening irritative voiding symptoms, post-operative hip and leg pain, and the risk of anesthesia. We also discussed that treatment of stress incontinence is unlikely to improve overactive bladder symptoms if present. She was also counseled on post-operative activity restrictions. She wishes to proceed.
[2024-10-25] VITALS (13 sets, daily range): BP systolic 95–145; BP diastolic 43–90; PULSE 66–94; RESP 12–20; TEMP 36.2–36.7; O2SAT 93–100; BMI 35.8
--- OUTSIDE RECORDS SUMMARY | 2024-10-25 02:27 | XMS_ITS | Clinical Summary ---
Author Organization [facility] Address [address] [place] [address] Phone Care Team Providers Care Grape Picker Name Role Phone Josh Morin MD Primary Care Provider [phone] Allergies Active Allergy Reactions Criticality Noted Date [...] Description 08/24/2024 Results [facility] [address] [place] [address] Josh Morin MD Comprehensive metabolic panel, CBC with auto differential, Lipid panel, Additional followed-up results: 6 08/23/2024 8:10 AM CDT Lab [facility] [address] [place] [id number] Annual physical exam; Encounter for hepatitis C screening test for low risk patient; Need for hepatitis B screening test 07/29/2024 12:55 PM CDT - 07/29/2024 11:59 PM CDT Hospital Encounter [facility] [address] [place] [address] Screening mammogram, encounter for Discharge Disposition: Discharge to home or self care 07/29/2024 Results [facility] [address] [place] [address] Josh Morin MD Screening Mammogram Bilateral W [...] Tobacco: Never Tobacco Cessation:Counseling Given: Not Answered [facility] Utilities Answer Date Recorded In the past 12 months has e [employer], gas, oil, or water company threatened to [...] or ex-partner? No 05/12/2024 Social Connection and Isolation Panel Answer Date Recorded In a typical week, how many times do you talk on the phone with family, friends, or neighbors? More than three times a week 05/12/2024 How often do you get togethe r with friends or relatives? More than three times a week 05/12/2024 How often do you attend chur ch or samaritan services? More than 4 times per year 05/12/2024 Do you belong to any clubs o r organizations such as advent groups, unions, fraternal or athletic groups, or [...] staff should administer the PHQ-9) 0 05/12/2024 [facility] Occupational Stress Questionnaire Answer Date Recorded [...] any time in the past 12 m [facility], were you homeless or living in a detention (including now)? 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 Gender Identity Not on file Sexual Orientation Not on file Obstetrics History Para Term AB IAB SAB Ectopic Multiple Livin g Live Births 2 2 2 Date Outcome GA Total Labor Labor/2nd/3rd Weight Sex Type Anes PTL Niya A1 A5 Name Clin Term Term Last Filed Vital Signs Vital Sign Reading Time Taken Comments Blood Pressure 120/84 05/12/2024 4:03 PM SPORTING GOODS SALES MANAGER Pulse 74 05/12/2024 4:03 PM SPORTING GOODS SALES MANAGER Temperature 36.7 C (98.1 F) 05/12/2024 4:03 PM SPORTING GOODS SALES MANAGER Respiratory Rate 16 05/12/2024 4:03 PM SPORTING GOODS SALES MANAGER Oxygen Saturation 99% 05/12/2024 4:03 PM SPORTING GOODS SALES MANAGER Inhaled Oxygen Concentration - - Weight 97.5 [...] was last reviewed 2021. Testing performed by: [facility], [address] [place] [address], [id number] Blood 08/23/2024 8:10 AM CDT 08/23/2024 1:12 PM CDT us Josh Morin MD LAB BLOOD ORDERABLES Evi stallings Result [facility] ([place]) 1 [facility] [place] [address] * Differential, auto (08/23/2024 8:10 AM CDT) Neutrophil abs 4.96 1.50 - 6.50 K/cumm Comment:Testing performed by : [facility], [address] [place] [address], [address] Imm gran abs 0.02 0.00 - 0.10 K/cumm [facility] ([place]) Comment:Testing performed by : [facility], [address] [place] [address], [id number] Lymphocyte abs 2.09 0.80 - 3.30 K/cumm [facility] ([place]) Comment:Testing performed by : [address], [address] Monocyte abs 0.46 0.20 - 0.80 K/cumm [facility] ([place]) Comment:Testing performed by : [address], [address] Eosinophil abs 0.18 0.00 - 0.50 K/cumm [facility] ([place]) Comment:Testing performed by : [address], [address] Basophil abs 0.05 0.00 - 0.10 K/cumm [facility] ([place]) Comment:Testing performed by : [address] [address] Neutrophil pct 64.0 % [facility] ([place]) Comment: Interpretive Data Percent cell count reference ranges are not reported, since discordance with absolute values may lead to misinterpretation of CBC data. Current Interpretive Data was last revised on 2017. Testing performed by: [facility], [address] [place] [address]., [address] Imm gran pct 0.3 % [facility] ([place]) Comment: Interpretive Data Percent cell count reference ranges are not reported, since discordance with absolute values may lead to misinterpretation of CBC data. Current Interpretive Data was last revised on 2017. Testing performed by: [address] [address] Lymphocyte pct 26.9 % [facility] ([place]) Comment: Interpretive Data Percent cell count reference ranges are not reported, since discordance with absolute values may lead to misinterpretation of CBC data. Current Interpretive Data was last revised on 2017. Testing performed by: [address] [address] Monocyte pct 5.9 % [facility] ([place]) Comment: Interpretive Data Percent cell count reference ranges are not reported, since discordance with absolute values may lead to misinterpretation of CBC data. Current Interpretive Data was last revised on 2017. Testing performed by: [facility], [address] [place] [address]., [address] Eosinophil pct 2.3 % [facility] ([place]) Comment: Interpretive Data Percent cell count reference ranges are not reported, since discordance with absolute values may lead to misinterpretation of CBC data. Current Interpretive Data was last revised on 2017. Testing performed by: [address] [address] Basophil pct 0.6 % [facility] ([place]) Comment: Interpretive Data Percent cell count reference ranges are not reported, since discordance with absolute values may lead to misinterpretation of CBC data. Current Interpretive Data was last revised on 2017. Testing performed by: [address] [address] Blood 08/23/2024 8:10 AM CDT 08/23/2024 12:51 PM CDT us Josh Morin MD LAB BLOOD ORDERABLES Evi chandrakant Result [facility] ([place]) 1 [facility] Department [place] [address] * CBC with auto differential (08/23/2024 8:10 AM CDT) WBC 7.76 3.80 - 9.90 K/cumm Comment:Testing performed by : [facility], [address] [place] [address], [address] Hgb 14.1 11.9 - 15.5 g/dL [facility] ([place]) Comment:Testing performed by : [address], [address] Hct 43.1 35.6 - 45.5 % [facility] ([place]) Comment:Testing performed by : [address], [address] Plt 313 150 - 400 K/cumm [facility] ([place]) Comment:Testing performed by : [address], [address] MPV 11.8 9.1 - 12.3 fL [facility] ([facility]) Comment:Testing performed by : [address], [address] RBC 4.95 3.90 - 5.20 M/cumm [facility] ([place]) Comment:Testing performed by : [address], [address] MCV 87.1 81.3 - 96.4 fL [facility] ([place]) Comment:Testing performed by : [address], [address] MCH 28.5 27.1 - 33.3 pg [facility] ([place]) Comment:Testing performed by : [address], [address] MCHC 32.7 32.3 - 35.7 g/dL [facility] ([place]) Comment:Testing performed by : [address], [address] RDW CV 12.4 11.1 - 14.9 % [facility] ([place]) Comment:Testing performed by : [facility], [address] [place] [address], [address] RDW SD 38.9 35.7 - 48.1 fL [facility] ([place]) Comment:Testing performed by : [facility], [address] [place] [address], [address] NRBC abs 0.00 0.00 - 0.01 K/cumm [facility] ([place]) Comment:Testing performed by : [facility], [address] [place] [address], [address] Blood 08/23/2024 8:10 AM CDT 08/23/2024 12:51 PM CDT Josh Morin MD LAB BLOOD ORDERABLES Evi l Result Performing Organization Address [facility] Co de Phone Number [facility] ([place]) 1 [facility] [place] [address] * Hepatitis C antibody Blood (08/23/2024 8:10 [...] last revised on 2019. Testing performed by: [facility], [address] [place] [address], [address] Blood 08/23/2024 8:10 AM CDT 08/23/2024 12:51 PM CDT Josh Morin MD LAB MICROBIOLOGY - GENERA L ORDERABLES Final Result Performing Organization Address City/[facility]/ZIP Co de Phone Number [facility] ([place]) 1 [facility] [address] * Hepatitis B core antibody, total Blood (08/23/2024 8:10 AM CDT) Hep B core IgG/IgM Nonreactive Nonreactive Comment:Testing performed by : [facility], [address] [place] [address] Blood 08/23/2024 8:10 AM CDT 08/23/2024 5:19 PM CDT Josh Morin MD LAB MICROBIOLOGY - GENERA L ORDERABLES Final Result Performing Organization Address City/[facility]/ZIP Co de Phone Number [facility] ([place]) 1 [facility] [address] * Hepatitis B surface antibody (immune status) Blood (08/23/2024 8:10 AM CDT) Pathologist [facility] HBsAb (immune status) Nonreactive Comment: Interpretive Data [...] last revised on 19. Testing performed by: [facility], [address] [place] [address]., [address] Blood 08/23/2024 8:10 AM CDT 08/23/2024 12:51 PM CDT Josh Morin MD LAB MICROBIOLOGY - GENERA L ORDERABLES Final Result [facility] ([place]) 1 [facility] [place] [address] * Hepatitis B Surface Antigen Blood (08/23/2024 8:10 AM CDT) HepBsAg Nonreactive Nonreactive Comment:Testing performed by : [address] [address] Blood 08/23/2024 8:10 AM CDT 08/23/2024 12:51 PM CDT us Josh Morin MD LAB MICROBIOLOGY - GENERA L ORDERABLES Final Result [facility] ([place]) 1 [facility] Department [place] [address] * (ABNORMAL) Lipid panel (08/23/2024 8:10 AM [...] last revised on 2017. Testing performed by: [address] [address] Triglycerides 77 <=149 mg/dL [facility]HEL[facility] ([place]) [...] last revised on 2017. Testing performed by: [address] [place] [address] HDL 35(L) >=40 mg/dL [facility] Zuniga ([place]) [...] last revised on 2017. Testing performed by: [facility], [address] [place] [address]., [address] LDL, calculated 78 <=129 mg/dL [facility] [...] Circulation 2004;110:227 3. Jerardo Herman et al. ETLON Cardiol. 2019July 15;5(5):540-548. doi: 10.1001/[email or web address] Current Interpretive Data was last revised on 2023. Testing performed by: [facility], [address] [place] [address]., [address] Non-HDL Cholesterol 93 mg/dL [facility] ([place]) [...] last revised on 2017. Testing performed by: [facility], [address] [place] [address]., [address] Chol/HDL ratio 4 [facility] ([place]) Comment:Testing performed by : [address] [address] Blood 08/23/2024 8:10 AM CDT 08/23/2024 12:51 PM CDT us Josh Morin MD LAB BLOOD ORDERABLES Evi stallings Result [facility] ([place]) 1 [facility] Department [place] [address] * Comprehensive metabolic panel (08/23/2024 8:10 AM CDT) Sodium 138 135 - 145 mmol/L Comment:Testing performed by : [facility], [address] [place] [address]., [address] Potassium, pl 4.1 3.3 - 4.9 mmol/L [facility] ([place]) Comment:Testing performed by : [facility], [address] [place] [address]., [address] Chloride 106 97 - 110 mmol/L [facility] ([place]) Comment:Testing performed by : [address] [address] CO2 23 22 - 32 mmol/L [facility] ([place]) Comment:Testing performed by : [address] [address] Anion gap 9 2 - 15 mmol/L [facility] ([place]) Comment:Testing performed by : [address] [address] BUN 7 6 - 25 mg/dL [facility] ([place]) Comment:Testing performed by : [address], [address] Creatinine 0.77 0.60 - 1.10 mg/dL [facility] ([place]) Comment:Testing performed by : [address] [address] Glucose 104 70 - 199 mg/dL [facility] [...] was last revised 2022. Testing performed by: [address] [address] Calcium 9.0 8.5 - 10.3 mg/dL [facility] ([place]) Comment:Testing performed by : [address], [address] Bilirubin, total 0.5 0.1 - 1.2 mg/dL [facility] ([place]) Comment:Testing performed by : [address], [address] Protein, pl 7.5 6.5 - 8.5 g/dL [facility] ([place]) Comment:Testing performed by : [address], [address] Albumin 4.1 3.5 - 5.0 g/dL [facility] ([place]) Comment:Testing performed by : [address], [address] Alk phos 75 40 - 130 Units/L [facility] ([place]) Comment:Testing performed by : [address], [address] ALT 10 7 - 45 Units/L [facility] ([place]) Comment:Testing performed by : [address], [address] AST 18 10 - 45 Units/L [facility] ([place]) Comment:Testing performed by : [address], [address] Blood 08/23/2024 8:10 AM CDT 08/23/2024 12:51 PM CDT us Josh Morin MD LAB BLOOD ORDERABLES Evi chandrakant Result [facility] ([place]) 1 [facility] [place] [address] * Screening Mammogram Bilateral W Gal (07/29/2024 [...] nal Result from Last 3 Months Insurance [facility] Care Teams Grape Picker Relationship Specialty Start Date End Date Josh Morin MD [address] [place] [address] PCP - General Family Medicine 05/03/22
--- OUTSIDE RECORDS SUMMARY | 2024-10-25 02:27 | XMS_ITS | Encounter Summary ---
Author Organization [facility] Healthcare Address [address] [place] [address] Care Team Providers Care Process Design Chemical Engineer Name Role Phone Josh Morin MD Primary Care Provider [phone] Encounter Details Date Type Department Care Team (Late st Contact Info) Description 08/24/2024 Results [facility] [address] [place] [address] Josh Morin MD [address] [facility] [address] Comprehensive metabolic panel, CBC with auto differential, Lipid panel, Additional followed-up results: 6 Social History Tobacco Use Types Packs/Day Years Used Date Smoking Tobacco: Never Cigarettes Smokeless Tobacco: Never [facility] Utilities Answer Date Recorded In the past 12 months has [facility], gas, oil, or water [employer] threatened to shut off services in your [...] week 05/12/2024 How often do you attend [facility] or congregational services? More than 4 times per year 05/12/2024 Do you belong to any clubs o r organizations such as jehovah's witness groups, unions, fraternal or athletic groups, or [...] staff should administer the PHQ-9) 0 05/12/2024 [facility] of Occupat ional Health - Occupational Stress [...] any time in the past 12 m [facility], were you homeless or living in a [place] health care facility (including now)? 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
--- OUTSIDE RECORDS SUMMARY | 2024-10-25 02:27 | XMS_ITS | Clinical Summary ---
Author Organization [facility] Address [address] [place] [address] Care Team Providers Care Race Engine Builder Name Role Phone Unknown, Provider Primary Care Provider Unavaila ble Source Comments [facility],non-owned Affiliates and Associated Physician Practices is amultiple site organization consisting of ambulatory clinics and hospital sitesin [place], [place], [place] and [place]. This disclosure is being madepursuant to the Care Everywhere program and may not contain all information available regarding this patient. Last updated 17.[facility] Allergies Active Allergy Reactions Criticality Noted Date [...] on file Legal Sex Female 6:01 AM CLAIMS ADJUSTER CROP Gender Identity Not on file Sexual Orientation Not on file Last Filed Vital Signs Vital Sign Reading Time Taken Comments Blood Pressure 110/80 05/20/2016 8:07 AM CLAIMS ADJUSTER CROP Pulse 104 05/20/2016 8:07 AM CLAIMS ADJUSTER CROP Temperature 37.7 C (99.9 F) 05/20/2016 8:07 AM CLAIMS ADJUSTER CROP Respiratory Rate 16 05/20/2016 8:07 AM CLAIMS ADJUSTER CROP Oxygen Saturation 99% 05/20/2016 8:07 AM CLAIMS ADJUSTER CROP Inhaled Oxygen Concentration - - Weight 94.3 kg (208 lb) 05/20/2016 8:07 AM CLAIMS ADJUSTER CROP Height 165.1 cm (5' 5) 05/20/2016 8:07 AM CLAIMS ADJUSTER CROP Body Mass Index 34.61 05/20/2016 8:07 AM CLAIMS ADJUSTER CROP Plan of Treatment Health Maintenance Due Date [...] complete this topic Insurance ANTHEM Care Teams Race Engine Builder Relationship Specialty Start Date End Date Unknown, Provider PCP - General 05/20/16
[2024-10-25] MEDS: LACTATED RINGERS 1,000 ML 30 ML IV CONT ×2 (06:54→10:46)
--- NOTE | 2024-10-25 07:14 | P.PNAN_ITS ---
Anes - Initial Pre Proc Eval Procedure: Operation Date: 10/25/24 07:30 Proposed Procedures p Robotic Sacrocolpopexy, Urethral Sling - Kain Vang MD s Robotic Assisted Hysterectomy Supracervical with Bilateral Salpingectomy - Wes Webber MD Date/Time: 10/25/24 07:14 Surgeon: Kain Vang MD Pre Op Diagnosis: incomp uterovaginal prolapse, stress incont Patient Data Age: 44 Gender: F Height: 1.65 m Weight: 98.3 kg Last Vital Signs Temp 37.0 C 10/14/24 12:37 Pulse 71 10/14/24 12:37 Resp 18 10/14/24 12:37 BP 132/86 10/14/24 12:37 Pulse Ox 100 10/14/24 12:37 O2 Del Method Room Air 10/14/24 12:37 Allergies Allergy/AdvReac Type Severity Reaction Status Date / Time amoxicillin Allergy Unknown Rash Verified 10/14/24 12:02 Home Medications ?Medication ?Instructions ?Recorded ?Confirmed ?Type multivitamin with minerals-folic 2 tablet PO DAILY 10/14/24 10/14/24 History acid 200 mcg chewable tablet (Adult Multivitamin Gummies) Patient hx anesthesia problems: none Family hx anesthesia problems: none Results Review: All pre-operative results and documents have been reviewed as part of the pre- operative evaluation. [facility] Past Medical History Medical History (Updated 10/25/24 @ 07:15 by Chaitanya Gilmore MD) Obesity Surgical History Surgical History (Updated 10/25/24 @ 07:15 by Chaitanya Gilmore MD) History of appendectomy Family History Family History Father Family history of thyroid disease Mother Family history of thyroid disease Grandparent Family history of pancreatic cancer Social History Social History Smoking status: Never smoker Alcohol intake: never Living arrangements: with family Spiritual care concerns: No Anes - Eval Final PreProcedure Day of Procedure 10/25/24 07:14 Patient weight: obese Heart: regular rate and rhythm Lungs: clear to auscultation Airway: Mallampati scale class II Neurological: alert and oriented Last oral intake: >/= 8 hours ASA classification: II Emergent: no Anesthetic plan: proceed Anesthesia type and monitoring: general ETT and standard monitoring Results Review: All pre-operative results and documents have been reviewed as part of the pre- operative evaluation. Informed Consent: The patient's anesthetic plan and its attendant risks and benefits were discussed with the patient/family/POA. Questions were solicited and answers provided to the satisfaction of the patient/family/POA.
--- NOTE | 2024-10-25 07:14 | WPDHPUPDATE1 ---
History and Physical Update Update Date/Time: 10/25/24 07:14 History and Physical has been reviewed, including an updated exam of the patient. There are NO changes in the patient's condition. Risks, benefits, and alternatives have been discussed and questions answered. Patient agrees to proceed with procedure.
[2024-10-25] MEDS: ACETAMINOPHEN 500 MG TABLET 1000 MG PO (07:20)
[2024-10-25] MEDS: KETOROLAC 15 MG/ML VIAL (*BKC) IV PUSH (07:20)
--- NOTE | 2024-10-25 07:21 | WPDHPUPDATE1 ---
History and Physical Update Update Date/Time: 10/25/24 07:21 History and Physical has been reviewed, including an updated exam of the patient. There are NO changes in the patient's condition. Risks, benefits, and alternatives have been discussed and questions answered. Patient agrees to proceed with procedure.
[2024-10-25] MEDS: ceFAZolin 2 GM in SODIUM CHLORIDE 0.9% IV 50 ML 100 ML IVPB (07:28)
[2024-10-25] MEDS: metroNIDAZOLE 500 MG/ISO 100ML 500 MG/100 ML BAG 100 MG IVPB (07:28)
[2024-10-25 07:51] LABS: BEDSIDEPREGUCG Negative (Negative)
[2024-10-25] MEDS: BUPIVACAINE/EPINEPHRINE 0.5% 50 ML VIAL 30 ML INFILTRATE (08:23)
--- NOTE | 2024-10-25 09:43 | W.PM.PROC2 ---
Procedure Note - Detailed Date of Procedure 10/25/24 Pre-op Diagnosis incomp uterovaginal prolapse, stress incont Post-op Diagnosis Same Procedure Performed Robotic assisted supracervical hysterectomy with bilateral salpingectomy Surgeon Wes Webber MD Anesthesia General Indications pelvic organ prolapse Findings normal-appearing uterus, ovaries, and left tube, right tube was partially resected. Some scarring over the posterior cul-de-sac peritoneum. Description of Procedure This patient was taken to the operating room. She was prepped and draped in the dorsal lithotomy position after induction of general anesthesia. the robot trocars and docking was performed by Dr. Vang. a tenaculum was applied to the vaginal mucosa at the cervicovaginal juncture posteriorly. This was done with a speculum and tenaculum. The speculum was placed. The cervix was grasped with a tenaculum. Trocars were placed by Dr. Vang. The location of the ureters was identified at the pelvic brim. The fallopian tubes were grasped and raised. The mesosalpinx was cauterized transected in the area between the fallopian tube and ovary. This was done in a stepwise fashion medially to the cornua. The fallopian tubes were then cauterized transected. They were taken out through the air lock port. The suspensory ligament of the ovary was cauterized transected. The round ligaments were cauterized transected with the vessel sealer cautery this was all done in a bilateral fashion. In a stepwise fashion along the lateral aspects of the uterus the round ligament and broad ligaments were cauterized transected down to the level of the uterine arteries. Approximately 8 pieces of uterus were carved off of the uterus using cautery. It was taken down to the paracervical area. The cervix was transected using unipolar cautery. The pieces of uterus were placed in to endo bags. The uterus and bilateral tubes and ovaries were laid off to the side for Dr. Vang to remove later. The remainder of the procedure was performed by Dr. Vang, again he finished the surgery. Urine Output 800 Drains Yes Packing No Pathology Yes Complications No immediate complications Condition Stable Disposition Floor
--- NOTE | 2024-10-25 10:06 | S_PTH ---
PATIENT: Krzysztof Lemons LOC: [facility] U#:[id number] AGE/SX: 44/F ROOM: RE10/25/[address]: Kain Vang MD : 1980 BED: DIS: 10/25/2024 SPEC #: [id number] RECD: 10/25/24 12:03 STATUS: ALEXANDRU REJosé Miguel #: [id number] LEE ANN: 10/25/24 10:[address]: Wes Webber DEPT: [facility] Surgical RECD BY: Pratibha Galindo ENTERED: 10/25/24 12:04 SP TYPE: Surgical OTHR DR: Josh Morin, MD Kain Vang MD Tissues: A - Uterus Procedures: Hematoxylin and Eosin Stain Gross and Microscopic Level 5
[2024-10-25] MEDS: fentaNYL CITRATE INJ (*CRX) 100 MCG/2 ML VIAL 25 MCG IV PUSH ×4 (11:14→12:15)
--- NOTE | 2024-10-25 11:14 | W.PM.PROC2 ---
Procedure Note - Detailed Date of Procedure 10/25/24 Pre-op Diagnosis incomp uterovaginal prolapse, stress incont Post-op Diagnosis Same Procedure Performed Robotic assisted laparoscopic sacral colpopexy Urethral sling Cystoscopy Surgeon Kain Vang MD Anesthesia General Indications Distal with uterine prolapse as well as stress incontinence. She desires surgical correction. She is here for the above. She understands risks of bleeding, infection, diskitis, damage to surrounding organs, bowel injury, bowel obstruction, mesh related complications including exposure and extrusion, postoperative voiding dysfunction including incontinence and retention, need for ancillary procedures, dyspareunia, recurrence of prolapse, and other perioperative intraoperative postoperative complications. She agrees to proceed. We discuss issues surrounding pelvic organ prolapse surgery in young women. Especially higher risk of recurrence Findings See below Description of Procedure She was correctly identified. Informed consent obtained. She from the operating room. She was given general anesthesia. She was given appropriate perioperative antibiotics. She was placed a low lithotomy position. Pressure points were padded. A time-out performed. I marked out the skin 3 fingerbreadths cephalad to the umbilicus. I anesthetized the skin. I incised the skin. I dissected down to the fascia. I grasped the fascia with Jc clamps. I entered the fascia sharply in a Fermin type technique. I placed sutures for later fascial closure. I placed a midline trocar. I examined the abdomen. There is no sign of any injury. Under direct vision I placed 2 additional trocars in the right upper quadrant and 2 additional trocars the left upper quadrant. She was placed in steep Trendelenburg. The robot was docked. Her rectifying operator completed their portion of the procedure. Please see that operative report for details. Specimen was placed in a bag and extracted at the end the surgery I then sat at the console. The Sizer in the vagina created plane on the anterior and posterior vaginal wall. I took great care not to injure the vagina, bladder, or rectum. I introduced the mesh into the abdomen. I sewed the anterior leaflet of mesh on the anterior vaginal wall. I sewed the posterior leaflet of mesh on the posterior vaginal wall. This was done with several sutures of 2 0 [place]. I reflected the colon laterally. I opened the posterior peritoneum over the sacral promontory. I carried this into the cul-de-sac. I freed up the edges for later retroperitonealization. I located the anterior longitudinal ligament the sacrum. I cleaned off all fatty tissues. I then tensioned my mesh appropriately. I did a vaginal exam the bedside. I assured prolapse reduction without undue tension. I then sewed the proximal leaflet of mesh onto the anterior longitudinal ligament of the sacrum with 3 sutures of 2 0 [place]. I then used a 2 0 Monocryl to completely and meticulously retroperitonealized all mesh. I allowed the colon to go back to its normal anatomic location. There is no sign of any impingement. The specimen was then removed. All ports removed. Fascia was tied down. Additional 2 sutures were placed to fully close the fascia. Skin was closed with Monocryl and surgical glue. She was repositioned and prepped for urethral sling. Apical support was excellent. No cystocele. Minimal rectocele. I marked out the inner thigh incisions. I anesthetized the skin and made the incisions. I then anesthetized the anterior vaginal wall at the mid urethra. I made a 1 cm incision. I dissected out laterally taking great care not to injure the urethra or the vaginal wall. I passed the helical trocars. I did this 1st on the left and then on the right. This was done from the thigh incision towards the vaginal incision. Sling was connected to the trocars and brought out the thigh incision. I tensioned the sling appropriately. I cut and the plastic sheaths. I closed the incision with 2 0 Vicryl. I then performed cystoscopy. There was no tumors or surgical artifact. Both ureters were seen to excrete clear yellow urine. There is no surgical artifact in the bladder or urethra. I cut the excess sling material. Close incision with glue. She was awakened and transferred to PACU in stable condition. Implants Sacral colpopexy mesh Urethral sling Estimated Blood Loss 30 Urine Output 800 Drains Yes (Barr catheter) Packing No Pathology Yes Complications No immediate complications Condition Stable Disposition PACU
[2024-10-25] MEDS: ONDANSETRON INJ 4 MG/2 ML VIAL IV PUSH (11:16)
[2024-10-25] MEDS: oxyCODONE HCL (*CRX) 5 MG TAB IR PO (13:03)
--- NOTE | 2024-10-25 13:57 | SUR.PHASEII ---
Instilled 300cc of Normal Saline into pt bladder at 1335 then removed guardado. Patient then proceeded to bathroom where she voided.
== END 2024-10-25 14:05 | disposition home or self-care (01) ==
PROVIDERS: Obstetrics & Gynecology; PCP Hospitalist; Visit Provider Urology
PROC: (CPT 57425; principal; 2024-10-25 07:30)
PROC: 0UT94ZZ Resection of Uterus, Percutaneous Endoscopic Approach (ICD-10-PCS; CPT 57425; 2024-10-25 07:30)
DX: N81.4 Uterovaginal prolapse, unspecified (principal); N39.3 Stress incontinence (female) (male); E66.9 Obesity, unspecified; Z68.35 Body mass index [BMI] 35.0-35.9, adult; Z98.890 Other specified postprocedural states; Z80.0 Family history of malignant neoplasm of digestive organs
CPT/HCPCS: 58542; 57425; S2900 ×2; 88307; J0690; A9270; C1771; C1781; J1100; J1836; J1885; J2003; J2250; J2405; J2704; J3010; J7120